=== PATIENT | male | born 1990 | race Caucasian/White ===

== ENCOUNTER 2019-02-23 09:56 | Emergency (ER) | payer MEDICAID ==
[2019-02-23] MEDS ORDERED: Haloperidol Lactate 5 mg/mL 1mL Vial IVP ONE ×3 (10:18→14:34)
[2019-02-23] MEDS ORDERED: Haloperidol Lactate 5 mg/mL 1mL Vial ONE ×3 (10:21→20:47)
[2019-02-23] MEDS ORDERED: Sodium Chloride 0.45% 1,000 ML IV ONE (10:22)
[2019-02-23] MEDS ORDERED: HYDROmorphone 1 mg/mL 1mL Syr IVP STA ×3 (10:46→15:19)
[2019-02-23] MEDS ORDERED: HYDROmorphone 1 mg/mL 1mL Syr ONE ×3 (10:49→14:54)
--- NOTE | 2019-02-23 11:07 | ED Physician Chart ---
ED Chief Complaint/HPI - Patient Information Date Seen:: 02/23/19 Time Seen:: 10:16 Chief Complaint:: combative behavior History of Present Illness:: this is a 29 yo male bib ems for a possible seizure, however the patient's father was with him and told me that the patient is autistic. he call 911 because the patient became too combative to control him. he has been getting harder and harder to care for him because of his trying to hit his head on other objects and disoriented. Allergies:: Allergies Allergy/AdvReac Type Severity Reaction Status Date / Time No Known Allergies Allergy Verified 02/23/19 10:10 Vitals:: Vital Signs - 8 hr 02/23/19 10:13 Temp 98.7 F HR 129 RR 22 BP 108/52 O2 Sat % 97 Historian:: Family Member (father) Review:: Nurse's Note Reviewed, EMS run form Reviewed ED Review of Systems - Review of Systems General/Constitutional: No fever, No chills, No weight loss, No weakness, No diaphoresis, No edema, No loss of appetite, Other (this patient is unable to give a review of systems) Skin: No skin lesions, No rash, No bruising Head: No headache, No light-headedness Eyes: No loss of vision, No pain, No diplopia ENT: No earache, No nasal drainage, No sore throat, No tinnitus Neck: No neck pain, No swelling, No thyromegaly, No stiffness, No mass noted Cardio Vascular: No chest pain, No palpitations, No PND, No orthopnea, No edema Pulmonary: No SOB, No cough, No sputum, No wheezing GI: No nausea, No vomiting, No diarrhea, No pain, No melena, No hematochezia, No constipation, No hematemesis G/U: No dysuria, No frequency, No hematuria Musculoskeletal: No bone or joint pain, No back pain, No muscle pain Endocrine: No polyuria, No polydipsia Psychiatric: No prior psych history, No depression, No anxiety, No suicidal ideation Hematopoietic: No bruising, No lymphadenopathy Allergic/Immuno: No urticaria, No angioedema Neurological: No syncope, No focal symptoms, No weakness, No paresthesia, No headache, No seizure, No dizziness, No confusion, No vertigo ED Past Medical History - Past Medical History Obtainable: Yes Past Medical History: Seizures, Other (autistic) Family History: None Social History: Non Smoker, No Alcohol, No Drug Use, Lives With Parents Surgical History: None Psychiatricy History: None Medication: Reviewed ED Physical Exam - Physical Examination General/Constitutional: Awake (this patient has no ability to think or communicate.), Well-developed, well-nourished, Alert, No distress (this patient is very combative and hitting himself as well hitting his head on anything that he gets near.), GCS 15, Non-toxic appearing, Ambulatory Head: Atraumatic Eyes: Lids, conjuctiva normal, PERRL, EOMI Skin: Nl inspection, No rash, No skin lesions, No ecchymosis, Well hydrated, No lymphadenopathy ENMT: External ears, nose nl, Nasal exam nl, Lips, teeth, gums nl Neck: Nontender, Full ROM w/o pain, No JVD, No nuchal rigidity, No bruit, No mass, No stridor Respiratory: Nl effort/Exclusion, Clear to Auscultation, No Wheeze/Rhonchi/Rales Cardio Vascular: RRR, No murmur, gallop, rubs, NL S1 S2 GI: No tenderness/rebounding/guarding, No organomegaly, No hernia, Normal BS's, Nondistended, No mass/bruits, No McBurney tenderness : No CVA tenderness Extremities: No tenderness or effusion, Full ROM, normal strength in all extremities, No edema, Normal digits & nails Neuro/Psych: Alert/oriented, DTR's symmetric, Normal sensory exam, Normal motor strength, Judgement/insight normal, Mood normal, Normal gait, No focal deficits Misc: Normal back, No paraspinal tenderness ED Labs/Radiology/EKG Results - Lab Results Results: Abnormal Lab Results 02/23/19 02/23/19 02/23/19 11:20 11:20 11:20 WBC 6.7 RBC 5.48 Hgb 15.7 Hct 47.8 MCV 87.2 MCH 28.6 MCHC Differential 32.9 RDW 12.9 Plt Count 234 MPV 9.0 Neutrophils % 86.8 H Lymphocytes % 9.4 L Monocytes % 2.9 Eosinophils % 0.4 Basophils % 0.5 PT 10.4 INR 1.00 PTT (Actin FS) 26.1 Sodium 141 Potassium 3.4 L Chloride 104 Carbon Dioxide 23.1 Anion Gap 17.3 H BUN 7 Creatinine 0.9 Est GFR ( Amer) > 60.0 Est GFR (Non-Af Amer) > 60.0 BUN/Creatinine Ratio 7.8 Glucose 107 H Calcium 9.7 Total Bilirubin 1.2 H AST 28 ALT 34 Alkaline Phosphatase 48 Total Protein 7.4 Albumin 4.6 Globulin 2.8 Albumin/Globulin Ratio 1.6 Urine Source Urine Color Urine Clarity Urine pH Ur Specific [place] Urine Protein Urine Glucose (UA) Urine Ketones Urine Blood Urine Nitrate Urine Bilirubin Urine Urobilinogen Ur Leukocyte Esterase Urine RBC Urine WBC Ur Epithelial Cells Urine Bacteria [place] 02/23/19 02/23/19 11:20 18:00 WBC RBC Hgb Hct MCV MCH MCHC Differential RDW Plt Count MPV Neutrophils % Lymphocytes % Monocytes % Eosinophils % Basophils % PT INR PTT (Actin FS) Sodium Potassium Chloride Carbon Dioxide Anion Gap BUN Creatinine Est GFR ( Amer) Est GFR (Non-Af Amer) BUN/Creatinine Ratio Glucose Calcium Total Bilirubin AST ALT Alkaline Phosphatase Total Protein Albumin Globulin Albumin/Globulin Ratio Urine Source [place] Urine Color YELLOW Urine Clarity HAZY Urine pH 6.0 Ur Specific [place] >= 1.030 Urine Protein TRACE Urine Glucose (UA) NEGATIVE Urine Ketones TRACE Urine Blood NEGATIVE Urine Nitrate NEGATIVE Urine Bilirubin NEGATIVE Urine Urobilinogen 0.2 Ur Leukocyte Esterase NEGATIVE Urine RBC NONE SEEN Urine WBC 0-2 Ur Epithelial Cells NONE SEEN Urine Bacteria FEW [place] - Radiology Results Results: ct head = nad ED Assessment - Assessment General Assessment: severe combative behavior ED Septic Shock - . Is Septic Shock (SBP<90, OR Lactate>4 mmol\L) present?: No - <6hrs of presentation: Vital Signs: Vital Signs - 8 hr 02/23/19 10:13 Temp 98.7 F HR 129 RR 22 BP 108/52 O2 Sat % 97 ED Reassessment (Disposition) - Diagnosis Diagnosis:: autism combative behavior - Aftercare/Follow up Instructions Notes:: the patient is to be transfered to [facility]... awaiting the doctor to doctor communication.
[2019-02-23 11:44] LABS: % BASOPHILS 0.5 % (0.0-2.0); % EOSINOPHILS 0.4 % (0.0-5.0); % LYMPHOCYTES 9.4 % (20.0-50.0); % MONOCYTES 2.9 % (2.0-10.0); % NEUTROPHILS 86.8 % (40.0-80.0); HEMATOCRIT 47.8 % (41.0-60); HEMOGLOBIN 15.7 gm/dL (12-16); LYMPHOCYTE ABSOLUTE 0.6 Th/cmm (1.5-3.0); MEAN CELL VOLUME 87.2 fl (80-99); MEAN CORPUSCULAR HEMOGLOBIN 28.6 pg (26.0-30.0); MEAN CORPUSCULAR HGB CONC 32.9 pg (28.0-36.0); MONOCYTE ABSOLUTE 0.2 Th/cmm (0.3-1.0); NEUTROPHILE ABSOLUTE 5.9 Th/cmm (1.8-8.0); PLATELET COUNT 234 Th/cmm (150-400); RED BLOOD COUNT 5.48 Mil/cmm (4.30-5.70); RED CELL DISTRIBUTION WIDTH 12.9 % (11.5-20.0); WHITE BLOOD COUNT 6.7 Th/cmm (4.8-10.8)
[2019-02-23 11:50] LABS: PROTHROMBIN TIME (TEST) 10.4 SECONDS (9.5-11.5)
[2019-02-23 12:23] LABS: ALB/GLOB RATIO 1.6 (1.0-1.8); ALBUMIN 4.6 gm/dL (4.2-5.5); ALKALINE PHOSPHATASE 48 U/L (34-104); ANION GAP 17.3 (7.0-16.0); BILIRUBIN,TOTAL 1.2 mg/dL (0.3-1.0); BUN - UREA NITROGEN 7 mg/dL (7-25); CALCIUM SERUM 9.7 mg/dL (8.6-10.3); CARBON DIOXIDE 23.1 mEq/L (21.0-31.0); CHLORIDE 104 mEq/L (98-107); CREATININE - SERUM 0.9 mg/dL (0.7-1.3); GFR AFRICAN-AMERICAN > 60.0 ml/min (>90); GFR NON AFRICAN-AMERICAN > 60.0 ml/min; GLUCOSE 107 mg/dL (70-105); POTASSIUM SERUM 3.4 mEq/L (3.5-5.1); SGOT 28 U/L (13-39); SGPT/ALT 34 U/L (7-52); SODIUM SERUM 141 mEq/L (136-145); TOTAL PROTEIN,SERUM 7.4 gm/dL (6.0-8.3)
--- NOTE | 2019-02-23 12:50 | Diagnostic Imaging Report ---
CT scan of the brain without contrast History: Headache, trauma Total DLP equals 864 CTDI equals 42.0 Axial sections were obtained from the base of the skull to the vertex. Soft tissue swelling noted over the high posterior parietal region of the skull near the vertex. There is a normal ventricular system size. No focal parenchymal lesions are seen. No evidence of any mass effect or shift of midline structures. No extra-axial masses or abnormal fluid collections. Impression: 1. No acute intracerebral abnormalities 2. Focal soft tissue swelling within the high posterior parietal region over the skull near the vertex.
--- NOTE | 2019-02-23 12:53 | Diagnostic Imaging Report ---
Portable chest x-ray HISTORY: Shortness of breath There is a poor inspiration. The patient is rotated. Allowing for this factor, the heart size appears normal. No focal pulmonary processes. No hilar or mediastinal abnormalities. IMPRESSION: No acute abnormalities
[2019-02-23 18:46] LABS: URINE SOURCE MIDSTREAM
[2019-02-23 18:48] LABS: URINE BILIRUBIN NEGATIVE (NEGATIVE); URINE BLOOD NEGATIVE (NEGATIVE); URINE GLUCOSE (UA) NEGATIVE (NEGATIVE); URINE KETONE TRACE mg/dL (NEGATIVE); URINE LEUKOCYTE ESTERASE NEGATIVE (NEGATIVE); URINE MICROSCOPIC INDICATED? YES; URINE NITRATE NEGATIVE (NEGATIVE); URINE PROTEIN TRACE mg/dL (NEGATIVE); URINE UROBILINOGEN 0.2 E.U./dL (0.2 - 1.0)
[2019-02-23 19:06] LABS: URINE CLARITY HAZY (CLEAR); URINE COLOR YELLOW; URINE RBC NONE SEEN /hpf (0-5); URINE WBC 0-2 /hpf (0-5)
[2019-02-23 19:07] LABS: URINE BACTERIA FEW /hpf (NONE SEEN); URINE EPITHELIAL CELLS NONE SEEN /lpf (FEW)
[2019-02-23] MEDS ORDERED: Haloperidol Lactate 5 mg/mL 1mL Vial IM STA (20:44)
== END 2019-02-23 21:29 | disposition left against medical advice (07) ==
LOC: ER 09:56
DX: F84.0 Autistic disorder (principal); R45.6 Violent behavior
CPT/HCPCS: 99284; 96372 ×2; 96374; 96375; 96376; 93005; 71045; 70450; 36415; 36416; 85025; 85610; 85730; 81001; 80178; 80053; 87040 ×2; J2060 ×2; J2405 ×3; J1170; J1200; J1630